=== PATIENT | male | born 1950 | race Caucasian/White ===

== ENCOUNTER 2016-10-15 03:15 | Emergency (ER) | payer OTHER, MEDICARE ==
[~2016-10-15] VITALS: Ht 182.9 cm; Wt 83.9 kg
[~2016-10-15 03:15] MED LIST: ALPRAZOLAM0.5 M3 PO; ALPRAZOLAM1 M2 PO; BENTYL10 M1 PO; CEFTIN250 M1 PO; CLARITIN10 M1 PO; CLONAZEPAM0.5 M2 PO; ESCITALOPRAM OX10 MG PO; FIBER350 GM PO; LEXAPRO20 M1 PO; METOPROLOL SUC100 MG PO; MIRALAX17 G1 PO; OMEPRAZOLE40 M1 PO; OXYCODONE5 M1 PO; PEPCID20 M1 PO; PERCOCET 325 MG1 TA2 PO; PERCOCET 5-3251 EACH PO; STOOL SOFTENER100 M2 PO; TOPROL XL100 M1 PO; WELCHOL 625 MG625 MG PO; ZETIA10 M1 PO; ZOLPIDEM TARTRA10 M1 PO
--- NOTE | 2016-10-15 03:36 | ED CARDIAC/CP/PALPITATIONS ---
History of Present Illness General Chief Complaint: Chest Pain Stated Complaint: CP Source: patient Exam Limitations: no limitations Vital Signs & Intake/Output Vital Signs & Intake/Output Vital Signs Date Time Temp Pulse Resp B/P Pulse O2 O2 Flow FiO2 Ox Delivery Rate 10/15 0703 77 18 131/80 98 Room Air 10/15 0328 98 Room Air 10/15 0325 97.9 79 20 143/78 97 Room Air Allergies Coded Allergies: STATINS (Intermediate, LEG WEAKNESS AFTER 11 DAYS 12/03/15) moxifloxacin (From Avelox) (Intermediate, MUSCLE CRAMPS 01/06/16) Reconcile Medications Alprazolam 1 MG TABLET 1 TAB PO PRN ANXIETY (Reported) Dextrin (Fiber) (Unknown Strength) POWDER (Unknown Dose) PO DAILY CHRONIC CONSTIPATION (Reported) Docusate Sodium (Stool Softener) (Unknown Strength) TABLET 1 TAB PO TID CHRONIC CONSTIPATION (Reported) Escitalopram Oxalate (Lexapro) 20 MG TABLET 1 TAB PO DAILY ANXIETY (Reported) Ezetimibe (Zetia) 10 MG TABLET 1 TAB PO DAILY CHOLESTEROL (Reported) Famotidine (Pepcid) 20 MG TABLET 1 TAB PO BID REFLUX (Reported) Loratadine (Claritin) 10 MG TABLET 1 TAB PO DAILY ALLERGIES (Reported) Metoprolol Succ XL (Toprol XL) 100 MG TAB.ER.24H 1 TAB PO DAILY AFIB ( Reported) Omeprazole 40 MG CAPSULE.DR 1 CAP PO BID REFLUX (Reported) Oxycodone HCl/Acetaminophen (Percocet 5-325 MG Tablet) 1 EACH TABLET 1-2 TAB PO Q4-6P PRN PAIN Polyethylene Glycol 3350 (Miralax) 17 GM POWD.PACK 1 PAC PO DAILY CHRONIC CONSTIPATION (Reported) dissolve in water Zolpidem Tartrate 10 MG TABLET 1 TAB PO QHS SLEEP (Reported) Triage Note: PT TO ED COMPLAINING OF 8/10 SHARP CHEST PAIN THAT WORSENS WITH DEEP INHALATION. PT STATES PAIN STARTED 4 HOURS AGO. PT STATES THAT PAIN DOES NOT SUBSIDE WITH REST, IT IS DIFFICULT FOR HIM TO EVEN LAY DOOWN. EKG DONE IN TRIAGE. Triage Nurses Notes Reviewed? yes HPI: Patient presents for evaluation of left chest and shoulder pain. Patient states it feels like a punch in the chest and arm. His shoulder pain actually began about 4 days ago and he has been taking Advil for this. At sometime after dinner at about 4:00 this afternoon the pain began radiating into the left chest and he became concerned about his heart. He denies any associated shortness of breath or diaphoresis. He is also having a sharp stomach pain. The chest pain worsens with deep inspiration. (EDMUND MILLER,RADHA Jaramillo) Past History Travel History Traveled to [place] past 21 day No Medical History Any Pertinent Medical History? 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 No (EDMUND MILLER,RADHA Jaramillo) Medical History Gastrointestinal: gastritis (KASIA RODRIGUEZ MD) Review of Systems Review of Systems Constitutional: Reports: no symptoms. EENTM: Reports: no symptoms. Respiratory: Reports: no symptoms. Cardiovascular: Reports: see HPI. GI: Reports: no symptoms. Genitourinary: Reports: no symptoms. Musculoskeletal: Reports: no symptoms. Skin: Reports: no symptoms. Neurological/Psychological: Reports: no symptoms. Hematologic/Endocrine: Reports: no symptoms. Immunologic/Allergic: Reports: no symptoms. All Other Systems: Reviewed and Negative (EDMUND MILLER,RADHA Jaramillo) Physical Exam Physical Exam Cardiovascular: SEE BELOW Comments: Gen.: Well-nourished, well-developed, no acute respiratory distress. Mild discomfort secondary to left shoulder pain. Head: Normocephalic, atraumatic. Eyes: Normal inspection bilaterally Ears: Normal inspection bilaterally Nose: Normal inspection Throat/mouth : Moist mucosa Neck: Supple, full range of motion, no goiter Heart: Regular rate and rhythm, no murmurs rubs or gallops Lungs: Clear to auscultation bilaterally with normal air entry Chest: Nontender Back: Normal range of motion Abdomen: Soft, nontender, nondistended, normal bowel sounds Extremities: Normal range of motion grossly, equal radial pulses, no cyanosis clubbing or edema Neurologic: Cranial nerves grossly intact, speech is clear Skin: warm and dry Psychiatric: Calm, cooperative, no apparent delusions or hallucinations Core Measures ACS in differential dx? No Severe Sepsis Present: No Septic Shock Present: No (EDMUND MILLER,RADHA Jaramillo) Progress Differential Diagnosis: AMI, musculoskeletal pain, unstable angina Plan of Care: Orders Procedure Date/time Status TROPONIN LEVEL 10/15 07 Complete EKG 10/15 699 Active Telemetry/Billiard Parlor Manager 10/15 352 Active TROPONIN LEVEL 10/15 352 Complete MAGNESIUM 10/15 352 Complete CBC WITHOUT DIFFERENTIAL 10/15 352 Complete BASIC METABOLIC PANEL 10/15 352 Complete EKG 10/15 317 Active Current Medications Sig/Rachna Start time Last Medication Dose Stop Time Status Admin Nitroglycerin 0.4 MG ONCE ONE 10/15 399 CAN (Nitrostat) 10/15 400 Laboratory Tests 10/15/16 0654: Troponin I < 0.01 10/15/16 0402: Anion Gap 12, Estimated GFR > 60, BUN/Creatinine Ratio 20.0, Glucose 99, Calcium 9.2, Magnesium 1.7, Troponin I < 0.01, CBC w Diff NO MAN DIFF REQ, RBC 5.36, MCV 76.2 L, MCH 25.1 L, RDW 14.2, MPV 8.2, Gran % 78.2 H, Lymphocytes % 9.1 L, Monocytes % 11.9 H, Eosinophils % 0.7, Basophils % 0.1, Absolute Granulocytes 8.1 H, Absolute Lymphocytes 0.9 L, Absolute Monocytes 1.2 H, Absolute Eosinophils 0.1, Absolute Basophils 0, PUBS MCHC 32.9 L Diagnostic Imaging: Discussed w/RAD: Radiology Read. CXR Impression: PATIENT: CIRA HERRERA PRESENT AGE: 66 PATIENT ACCOUNT NO: [id number] : 50 LOCATION: [facility] ORDERING PHYSICIAN: RADHA SHAFFER MD SERVICE DATE: 10/15/16 EXAM TYPE: RAD - XRY-PORTABLE CHEST XRAY EXAMINATION: XR PORTABLE CHEST CLINICAL INFORMATION: Left-sided chest pain. COMPARISON: Chest x-ray 04/26/2013 TECHNIQUE: Portable AP portable view of the chest was obtained. 4:12 AM FINDINGS: No significant abnormality is noted involving the heart, lungs, mediastinum, bony thorax or soft tissues. IMPRESSION : No acute change of chest. DICTATED BY: RAY CAMACHO MD DATE/TIME DICTATED:431 TRANSACTION ADVISORY SERVICES MANAGER:MICHAEL DATE/TIME TRANSCRIBED:10/15/16431 CONFIDENTIAL, DO NOT COPY WITHOUT APPROPRIATE AUTHORIZATION. <Electronically signed in Other Vendor System> SIGNED BY: RAY CAMACHO MD 10/15/16436 Initial ED EKG: NSR, rate (74), nonspecific ST T wave chg Prior EKG: unchanged Rhythm Strip: normal sinus rhythm Comments: 10/15/2016 4:10:01 AM Cira was hesitant to take the sublingual nitroglycerin because he does not feel that this is a heart related pain. Currently he states that when he is at rest he has no chest or shoulder pain. He is now experiencing only a lower substernal and epigastric pain that also resolves when resting. He is agreeable to trying a GI cocktail given his history of acid reflux. 10/15/2016 5:06:54 AM Cira is feeling better. His pain has improved substantially and he feels it primarily when he is taking a deep breath. He states last time he was seen in the emergency department he was given an IV medication that seemed to really help. With review of his prior emergency department visit he was treated with omeprazole and famotidine, I have ordered these. 10/15/2016 5:32:40 AM I went to check on martha condition. He states that the pain seems to change depending on what side he is lying on. Currently he is moving about the stretcher much more comfortably than he did before. Given his own history and the history of coronary artery disease in his father he is agreeable to a repeat EKG and troponin. At this point he is becoming increasingly convinced that his current symptoms are due to a new diabetes medication that he has been taking. 10/15/2016 7:11:36 AM patient signed out to Dr. Rodriguez at shift recovery specialist. (EDMUND MILLER,RADHA Jaramillo) Comments: Diagnostics reviewed patient examined and updated. (MICHAEL MILLER,KASIA) Departure Departure Condition: Stable Departure Forms: Customer Survey General Discharge Information (RADHA SHAFFER MD) Departure Time of Disposition: 802 Disposition: HOME OR SELF CARE Clinical Impression Primary Impression: Chest pain syndrome Secondary Impressions: Gastritis Qualifiers: Gastritis type: unspecified gastritis Chronicity: acute Gastritis bleeding: without bleeding Qualified Code: K29.00 - Acute gastritis without bleeding Medication side effect Referrals: BLANKA MILLER,ROBERT Vega (PCP/Family) sherri JONAS MD,IRINA Story concerning Zetia side effects. Prescriptions: Current Visit Scripts Baclofen 1 TAB PO TIDPRN PRN muscle spasm/strain #30 TAB Hydrocodone/Acetaminophen (Vicodin 5-300 MG Tablet) 1 TAB PO Q6P PRN severe pain #15 TAB (MICHAEL MILLER,KASIA) Critical Care Note Critical Care Note Critical Care Time: 30-74 min (EDMUND MILLER,RADHA Jaramillo)
[2016-10-15 04:23] LABS: ABSOLUTE BASOPHIL COUNT 0 /CUMM (0.0-0.2); ABSOLUTE EOSINOPHIL COUNT 0.1 /CUMM (0.0-0.7); ABSOLUTE GRANULOCYTE CT 8.1 /CUMM (1.4-6.5); ABSOLUTE LYMPH COUNT 0.9 /CUMM (1.2-3.4); ABSOLUTE MONOCYTE COUNT 1.2 /CUMM (0.10-0.60); BASOPHIL % 0.1 % (0.0-2.0); EOSINOPHIL % 0.7 % (0-5); GRANULOCYTE % 78.2 % (42.2-75.2); HEMATOCRIT 40.8 % (42-52); MEAN CORPUSCULAR HGB 25.1 PG (27.0-31.0); MEAN CORPUSCULAR HGB CONC 32.9 G/DL (33.0-37.0); MEAN CORPUSCULAR VOLUME 76.2 FL (80.0-94.0); MEAN PLATELET VOLUME 8.2 FL (7.4-10.4); PLATELET COUNT 217 /CUMM (130-400); RBC DISTRIBUTION WIDTH 14.2 % (11.5-14.5); RED BLOOD CELL CT 5.36 /CUMM (4.70-6.10); WHITE BLOOD CELL COUNT 10.3 /CUMM (4.8-10.8)
--- NOTE | 2016-10-15 04:37 | RADIOLOGY REPORT ---
EXAMINATION: XR PORTABLE CHEST CLINICAL INFORMATION: Left-sided chest pain. COMPARISON: Chest x-ray 04/26/2013 TECHNIQUE: Portable AP portable view of the chest was obtained. 4:12 AM FINDINGS: No significant abnormality is noted involving the heart, lungs, mediastinum, bony thorax or soft tissues. IMPRESSION: No acute change of chest.
[2016-10-15 07:03] VITALS: BP 131/80
[2016-10-15] MEDS ORDERED: VICODIN 5-3001 EACH PO (08:12)
[2016-10-15] MEDS ORDERED: BACLOFEN10 M1 PO (08:12)
== END 2016-10-15 08:10 ==
LOC: ERH 03:15
PROVIDERS: Emergency Medicine
DX: R07.89 Other chest pain (principal); K29.70 Gastritis, unspecified, without bleeding; T50.905A Adverse effect of unspecified drugs, medicaments and biological substances, initial encounter
CPT/HCPCS: 93005; 93010; 96374

== ENCOUNTER 2018-03-08 11:58 | Observation (INO) | payer OTHER, MEDICARE ==
[~2018-03-08] VITALS: Ht 175.3 cm; Wt 68.0 kg
[~2018-03-08 11:58] MED LIST changes: +BACLOFEN10 M1 PO; +VICODIN 5-3001 EACH PO
--- NOTE | 2018-03-08 13:18 | ED GENERAL ADULT ---
See Addendum History of Present Illness General Chief Complaint: General Adult Stated Complaint: HALUCINATIONS, NERVOUS BREAKDOWN S/P DX [place] Source: patient, family, old records Exam Limitations: confusion, poor historian Vital Signs & Intake/Output Vital Signs & Intake/Output Vital Signs Date Time Temp Pulse Resp B/P B/P Pulse O2 O2 Flow FiO2 Mean Ox Delivery Rate 03/08 2220 98.1 88 19 141/81 96 Room Air 03/08 1759 97.9 82 18 144/79 97 Room Air 03/08 1347 97.6 72 18 132/82 99 Room Air 03/08 1207 97.6 78 17 128/83 98 Room Air Allergies Coded Allergies: STATINS (Intermediate, LEG WEAKNESS AFTER 11 DAYS 12/03/15) moxifloxacin (From Avelox) (Intermediate, MUSCLE CRAMPS 01/06/16) Reconcile Medications Escitalopram Oxalate (Lexapro) 20 MG TABLET 1 TAB PO DAILY ANXIETY (Reported) Ezetimibe (Zetia) 10 MG TABLET 1 TAB PO DAILY CHOLESTEROL (Reported) LORazepam (Ativan) 1 MG TAB 1 TAB PO QPM SLEEP (Reported) Metoprolol Succ XL (Toprol XL) 100 MG TAB.ER.24H 1 TAB PO DAILY AFIB ( Reported) Pravastatin Sodium (Pravachol) 20 MG TABLET 1 TAB PO DAILY CHOLESTEROL ( Reported) Zolpidem Tartrate 10 MG TABLET 1 TAB PO QHS SLEEP (Reported) Triage Note: PT BROUGHT TO ED BY WITH CONCERNS OF ALTERED MENTAL STATUS, HALLUCINATIONS X 3 WEEKS. ALSO REPORTS A NEW EPISODE OF INCONTINENCE. STATES, PT IS SEEING THINGS THAT ARE NOT THERE. DENIES SI/HI. Triage Nurses Notes Reviewed? yes HPI: This is a 67-year-old male with history of hyperlipidemia, atrial fibrillation, presented to the emergency department with several weeks of ongoing behavioral disturbance. Patient was brought in by his after outpatient evaluation. He is [facility] in a [facility]. According to the , the [facility] facility requested ED evaluation prior to their accepting the patient. According to the , he has a ready bed for tomorrow. Patient has been acting intermittently agitated, particularly at night; his states that he has been making bizarre statements such as worrying that people are breaking into the house, describing what can only be visual hallucinations. He has also been incontinent of urine intermittently. He underwent an outpatient MRI which according to the was normal. He has had no fever/chills. He has had good appetite per the . He has had no chest pain or shortness of breath. Review of systems is limited by the patient's confusion. (Adams Banks MD) Past History Travel History Traveled to [place] past 21 day No Medical History Any Pertinent Medical History? 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 No (Adams Banks MD) Review of Systems Review of Systems Constitutional: Reports: no symptoms. EENTM: Reports: no symptoms. Respiratory: Reports: no symptoms. Cardiovascular: Reports: no symptoms. GI: Reports: no symptoms. Genitourinary: Reports: no symptoms. Musculoskeletal: Reports: no symptoms. Skin: Reports: no symptoms. Neurological/Psychological: Reports: anxiety, confusion, emotional problems. Hematologic/Endocrine: Reports: no symptoms. Immunologic/Allergic: Reports: no symptoms. (Adams Banks MD) Physical Exam Physical Exam General Appearance: well developed/nourished, no apparent distress, alert, awake , anxious Head: atraumatic, normal appearance Eyes: Bilateral: normal appearance. 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 Patient confused to recent past medical history or very poor historian. Oriented to person, place, time. Core Measures ACS in differential dx? No CVA/TIA Diagnosis: No Sepsis Present: No Sepsis Focused Exam Completed? No (Adams Banks MD) Progress Differential Diagnoses I considered the following diagnoses in my evaluation of the patient: Metabolic derangement, occult infection/urinary tract infection, clinically suspect that this is progression of organic neurologic disorder. Could be psychiatric related. Patient will require outpatient neurologic workup. Low suspicion for acute cerebrovascular accident. Plan of Care: Orders Procedure Date/time Status Heart Healthy Diet 03/09 B Active BASIC ELECTROLYTES PLUS BUN&CR 03/09 06 Active Pathway - chart 03/08 2357 Active House Staff 03/08 2357 Active Patient Data 03/08 2314 Active Patient Safety Monitor 03/08 2314 Active EKG 03/[address] in observation 03/08 2256 Active Vital Signs 03/08 225 Active Code Status 03/08 225 Active Add-on Test (ER Only) 03/08 205 Active THYROID STIMULATING HORMONE 03/08 1610 Complete THYROXINE 03/08 1610 Complete ED CRISIS PSYCH CONSULT 03/08 1523 Active COMPREHENSIVE METABOLIC PANEL 03/08 1348 Complete CBC WITHOUT DIFFERENTIAL 03/08 1348 Complete EKG 03/08 1348 Active Intake & Output 03/08 1339 Active URINE DRUG SCREEN FOR ER ONLY 03/08 1207 Complete URINALYSIS 03/08 1207 Complete VTE Mechanical Prophylaxis 03/08 UNK Active Vital Signs 03/08 UNK Active Intake & Output 03/08 UNK Active Activity/Ambulation 03/08 UNK Active Current Medications Sig/Rachna Start time Last Medication Dose Stop Time Status Admin Escitalopram Oxalate 20 MG DAILY 03/09 900 UNVr (Lexapro) Metoprolol Succinate 100 MG DAILY 03/09 900 UNVr (Toprol Xl) Pravastatin Sodium 20 MG DAILY 03/09 900 UNVr (Pravachol) Heparin Sodium 5,000 UNIT Q8 03/09 06 UNVr (Porcine) Potassium Chloride 40 MEQ ONCE ONE 03/09 0015 UNVr (Klor) 03/09 0016 Laboratory Tests 03/08/18 1610: Anion Gap 11, Estimated GFR > 60, BUN/Creatinine Ratio 18.3, Glucose 89, Calcium 8.3 L, Total Bilirubin 1.1, AST 30, ALT 37, Alkaline Phosphatase 39, Total Protein 6.2 L, Albumin 3.7, Globulin 2.5, Albumin/Globulin Ratio 1.5, TSH 1.390 , Thyroxine (T4) 8.7 03/08/18 1425: CBC w Diff NO MAN DIFF REQ, RBC 5.07, MCV 75.5 L, MCH 25.3 L, MCHC 33.5, RDW 14.6 H, MPV 9.1, Gran % 67.5, Lymphocytes % 20.4 L, Monocytes % 11.3 H, Eosinophils % 0.6, Basophils % 0.2, Absolute Granulocytes 4.3, Absolute Lymphocytes 1.3, Absolute Monocytes 0.7 H, Absolute Eosinophils 0, Absolute Basophils 0 03/08/18 1223: Urine Opiates Screen < 100, Methadone Screen < 40, Barbiturate Screen < 60, Ur Phencyclidine Scrn < 6.00, Amphetamines Screen < 100, U Benzodiazepines Scrn < 85, Urine Cocaine Screen < 50, Urine Cannabis Screen < 5.00, Urine Color YEL, Urine Clarity CLEAR, Urine pH 6.0, Ur Specific [place] >= 1.030, Urine Protein NEG, Urine Ketones TRACE H, Urine Nitrite NEG, Urine Bilirubin NEG@ICTO, Urine Urobilinogen 2.0 H, Ur Leukocyte Esterase NEG, Ur Microscopic EXAM NOT REQUIRED , Urine Hemoglobin NEG, Urine Glucose NEG In this patient with a nonfocal neurologic exam and recurrent episodes of agitation at night with some forgetfulness and confusion with report of visual hallucination, patient will be evaluated by the crisis intervention unit. Low suspicion for acute metabolic derangement or infectious process or acute vascular pathology. Patient calm and cooperative while in my care in the emergency department. Following valuation by the crisis unit, he decided the patient would benefit from admission to observation status under the medicine service. While the emergency department, he has frequent urination but no dysuria. He is able ambulate without difficulty. Initial ED EKG: normal axis, normal intervals, no ST T wave changes (Adams Banks MD) Departure Departure Time of Disposition: 1705 Disposition: STILL A PATIENT Condition: Stable Clinical Impression Primary Impression: Visual hallucinations Secondary Impressions: Agitation Referrals: Lauren MILLER,Scar Vega (PCP/Family) Departure Forms: Customer Survey General Discharge Information Observation Note Spoke With: Daysi Tamez MD Physician Advisor Notified: GRADYLISET BENAVIDEZ MD Place Patient In: Non-ED OBS Care Area Rationale for Observation: My rational for observation is as follows patient here for neurologic consultation, psychiatric consultation, frequent reassessment, possible repeat laboratory studies, pharmacologic control of agitation.. (Adams Banks MD) Resident Co-Sign Statement Statement: ED Attending supervision documentation- [] I saw and evaluated the patient. I have also reviewed all the pertinent lab results and diagnostic results. I agree with the findings and the plan of care as documented in the Resident's documentation. [X] I have reviewed the ED Record and agree with the Resident's documentation. [] Additions or exceptions (if any) to the Resident's note and plan are summarized below: [] (Liset Grady MD) Critical Care Note Critical Care Note Critical Care Time: non-applicable (Adams Banks MD) ED Attending Observation Initial Observation Note: I have seen and personally examined CIRA HERRERA on 03/08/18 at 2258. I agree with the current emergency department documentation. The disposition (admission or discharge) is uncertain at this time, he needs a period of observation for the following reason(s): The ED Nurse caring for this patient has been personally informed as to what the patient is being observed for. (Adams Banks MD)
[2018-03-08 14:32] LABS: ABSOLUTE BASOPHIL COUNT 0 /CUMM (0.0-0.2); ABSOLUTE EOSINOPHIL COUNT 0 /CUMM (0.0-0.7); ABSOLUTE GRANULOCYTE CT 4.3 /CUMM (1.4-6.5); ABSOLUTE LYMPH COUNT 1.3 /CUMM (1.2-3.4); ABSOLUTE MONOCYTE COUNT 0.7 /CUMM (0.10-0.60); BASOPHIL % 0.2 % (0.0-2.0); EOSINOPHIL % 0.6 % (0-5); GRANULOCYTE % 67.5 % (42.2-75.2); HEMATOCRIT 38.3 % (42-52); MEAN CORPUSCULAR HGB 25.3 PG (27.0-31.0); MEAN CORPUSCULAR HGB CONC 33.5 G/DL (33.0-37.0); MEAN CORPUSCULAR VOLUME 75.5 FL (80.0-94.0); MEAN PLATELET VOLUME 9.1 FL (7.4-10.4); PLATELET COUNT 318 /CUMM (130-400); RBC DISTRIBUTION WIDTH 14.6 % (11.5-14.5); RED BLOOD CELL CT 5.07 /CUMM (4.70-6.10); WHITE BLOOD CELL COUNT 6.3 /CUMM (4.8-10.8)
[2018-03-08] MEDS ORDERED: PRAVACHOL20 M2 PO (15:00)
[2018-03-08] MEDS ORDERED: ATIVAN1 M1 PO (15:01)
--- NOTE | 2018-03-08 15:09 | CT SCAN REPORT ---
EXAMINATION: CT HEAD WITHOUT CONTRAST CLINICAL INFORMATION: Altered mental status. COMPARISON: MRI of the brain from 03/02/2018 TECHNIQUE: Contiguous axial imaging was performed from the skull base to vertex without intravenous administration of contrast. DLP: 319 mGy-cm FINDINGS: There is no evidence of acute intracranial hemorrhage or territorial infarction. No abnormal mass effect or midline shift is seen. Aviles to white matter differentiation is well preserved. No extra-axial fluid collections are identified. The ventricles are normal in size. There is no abnormal attenuation within the brain parenchyma. The osseous structures and soft tissues are normal. The mastoid air cells, middle ear cavities, and visualized portions of the paranasal sinuses are well aerated. IMPRESSION: No acute intracranial pathology.
--- NOTE | 2018-03-08 17:12 | RADIOLOGY REPORT ---
EXAMINATION: CHEST 2 VIEWS CLINICAL INFORMATION: Altered mental status. COMPARISON: 10/15/2016. TECHNIQUE: PA and lateral views of the chest were obtained. FINDINGS: The cardiac silhouette is not enlarged. The mediastinal and hilar contours are unremarkable. There are neither pleural effusions nor pneumothoraces. There are no consolidations. The osseous structures are stable. IMPRESSION: No evidence for acute disease.
--- NOTE | 2018-03-08 21:05 | ED PSYCH CRISIS CONSULTATION ---
See Addendum Crisis Consult Basic Assessment Date of Consult: 03/08/18 Responsible Person/Accompanied By: Brought in by family Insurance Authorization: Insurance #1: Insurance name: MEDICARE A Phone number: Policy number: [id number] Group number: Authorization number: ED Provider: Patient's ED Provider: Adams Banks MD Primary Care Physician: Patient's PCP: Scar Aguilar MD PCP's Current Psychiatrist: None Chief Complaint: General Adult Patient's Quote: "Multiple Ailments" Present Illness: The patient is a 67 year old, male presenting to the ED with Altered mental status and new onset of hallucinations over the last 4 weeks. The patient presents as alert and oriented for the majority of the evaluation, however had 2-3 periods during the evaluation where he was disoriented and not answering questions appropriately. He was aware of the date, where he was and who he was, however believed that he was 86 or 89 years old. He is aware that he is having memory issues and states that he never had that problem before. He states that his family has been telling him things that he has been doing and saying and it is hard to believe. He denies any suicidal or homicidal ideations. He admits to some depression and anxiety related to the situation, rating his depression a 6 out of 10 and anxiety a 5 out of 10, 10 being the most severe. He states that all of this started when he "got a strange cold or flu," and then he started to feel not right. He states that he has not been able to drive, he has been having difficultly sleeping and had lost "50lbs." he is not sure what would be helpful and defers to his family. SW met with his , Soni Silva ([phone]) and his niece David Newman ([phone]), for collateral information. The family states that over the last 4 weeks "his whole personality changed." They states that he has been hallucinating and seeing people that are not there. He has been hiding his valuables around the house, locking his out of the bedroom and believed that pillows were the strangers suitcases. The family states that he was watching a television program and became very paranoid stating that the program was about their family and that private information was being shared with everyone. The family states that he has lost weight and has been having difficulty urinating, noting that he urinated on his bed last night. They state he has been confused and been disoriented in their own home, not knowing where the bathroom is. They state that he was driving 4 weeks ago when they went to [place] and now they have taken his keys, as he is disoriented. They find him to have poor judgement and not able to care for himself. They state that he has no significant mental health history and that he has only been treated by his PCP and more recently the [facility], with some minimal antidepressants. They wanted to note that his mother did commit suicide by running her car in the garage and that she left a tape saying she was trying to kill him also, as he was sleeping at the time. They believe that he needs a further medical workup. Patient's Address: [address] [place] [address] [place] [address] Other Phone Number: Who Do You Live With? Spouse Family/Informants Interviewed: - Soni Myers [phone] Niece- David Newman- [phone] Allergies - Coded Allergies: STATINS (Intermediate, LEG WEAKNESS AFTER 11 DAYS 12/03/15) moxifloxacin (From Avelox) (Intermediate, MUSCLE CRAMPS 01/06/16) Current Medications - Scheduled Medications Escitalopram Oxalate (Lexapro) 20 MG TABLET 1 TAB PO DAILY ANXIETY (Reported) Entered as Reported by Taylor Hays on 05/05/16 1651 Ezetimibe (Zetia) 10 MG TABLET 1 TAB PO DAILY CHOLESTEROL (Reported) Entered as Reported by Taylor Hays on 05/05/16 1653 LORazepam (Ativan) 1 MG TAB 1 TAB PO QPM SLEEP (Reported) Entered as Reported by Giorgio Padilla on 03/08/18 1501 Metoprolol Succ XL (Toprol XL) 100 MG TAB.ER.24H 1 TAB PO DAILY AFIB ( Reported) Entered as Reported by Taylor Hays on 05/05/16 1652 Pravastatin Sodium (Pravachol) 20 MG TABLET 1 TAB PO DAILY CHOLESTEROL ( Reported) Entered as Reported by Giorgio Padilla on 03/08/18 1500 Zolpidem Tartrate 10 MG TABLET 1 TAB PO QHS SLEEP (Reported) Entered as Reported by Taylor Hays on 05/05/16 1653 Laboratory Results: Laboratory Tests 03/08/18 1610: Anion Gap 11, Estimated GFR > 60, BUN/Creatinine Ratio 18.3, Glucose 89, Calcium 8.3 L, Total Bilirubin 1.1, AST 30, ALT 37, Alkaline Phosphatase 39, Total Protein 6.2 L, Albumin 3.7, Globulin 2.5, Albumin/Globulin Ratio 1.5 03/08/18 1425: CBC w Diff NO MAN DIFF REQ, RBC 5.07, MCV 75.5 L, MCH 25.3 L, MCHC 33.5, RDW 14.6 H, MPV 9.1, Gran % 67.5, Lymphocytes % 20.4 L, Monocytes % 11.3 H, Eosinophils % 0.6, Basophils % 0.2, Absolute Granulocytes 4.3, Absolute Lymphocytes 1.3, Absolute Monocytes 0.7 H, Absolute Eosinophils 0, Absolute Basophils 0 03/08/18 1223: Urine Opiates Screen < 100, Methadone Screen < 40, Barbiturate Screen < 60, Ur Phencyclidine Scrn < 6.00, Amphetamines Screen < 100, U Benzodiazepines Scrn < 85, Urine Cocaine Screen < 50, Urine Cannabis Screen < 5.00, Urine Color YEL, Urine Clarity CLEAR, Urine pH 6.0, Ur Specific Aston >= 1.030, Urine Protein NEG, Urine Ketones TRACE H, Urine Nitrite NEG, Urine Bilirubin NEG@ICTO, Urine Urobilinogen 2.0 H, Ur Leukocyte Esterase NEG, Ur Microscopic EXAM NOT REQUIRED , Urine Hemoglobin NEG, Urine Glucose NEG Past History Past Medical History Neurological: NONE EENT: NONE Cardiovascular: AFIB (PAROXYSMAL), hyperlipidemia, PVC Respiratory: NONE Gastrointestinal: gastritis Hepatic: NONE Renal: NONE Musculoskeletal: DISC PROBLEMS Psychiatric: NONE Endocrine: NONE Blood Disorders: NONE Cancer(s): NONE 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 Physical Limitations (Interventions): The patient has been staying in bed more and has been incontinent. Psychiatric Treatment History Psych Treatment Psychiatric Treatment No Inpatient Treatment No Outpatient Treatment Yes Location of Treatment Dr. Carbajal- [facility] Reason for Treatment Depression- per Dates of Treatment Recently started with the [facility] Response to Treatment N/A Diagnosis by History: N/A Substance Use/Abuse History Drug Use/Abuse Substances Used/Abused No First Use N/A Last Used N/A How much used/taken N/A How often N/A For how long N/A Route of use N/A Substance Abuse Treatment Substance Abuse Treatment Past Substance Abuse [place] No Inpatient Treatment No Outpatient Treatment No Location of Treatment N/A Reason for Treatment N/A Dates of Treatment N/A Response to Treatment N/A Comments: The patient states that he used to have alcohol at times, however he has not had any in 1 month, noting that the doctor stated when he started to show altered mental status that he should not have any. Current Mental Status Mental Status Orientation: He presented alert and oriented and was able to state where he was, who he was and the current situation. He did know he was born in 1950, however states that he was 86 or 89 years old. He did become completely disortiented during two periods of the evaluation and then quickly was oriented again. Affect: Anxious (Irritable) Speech: WNL Neuro-vegetative: Appetite Decreased (With significant weight loss), Sleep Disturbance Appearance Appearance- Dress/Hygiene: The patient was lying in bed, in his own attire with the blankets pulled up to his head. He had minimal eye contact during the evaluation and presented as irritable. Behaviors Thought Process: WNL, There was 2 periods during the evaluation where he became disoriented and began to answer questions in an inappropriate unlogical manner. Thought Content: WNL, Per his and niece he has been paranoid and having hallucinations. He has been seeing people around their house. Per his , he has been having ideas of reference and believed that the police show on televsion was about him and talking about him, giving out personal information. Memory: Impaired (Sudden onset of memory issues) Insight: Fair SI/HI Risk Assessment Past Suicidal Ideation/Attempts No Current Suicidal Ideation/Att No Past Homicidal Ideation/Att: No Current Homicidal Ideation/Attempts No Degree of Intent: None Danger To: N/A Gravely Disabled: Lack of Insight, Poor Impulse Control, Poor Judgment Risk Factors: age (under 24/over 65), high anxiety/distress, male Lethality Ratin PTSD Checklist PTSD Done? patient declined (Denies trauma or abuse hx.) ED Management Sitter: Yes Restraints: No DSM5/PS Stressors/Medical Prob Diagnosis' (DSM 5, Stressors, Medical): F29 Unspecified Schizophrenia Spectum and other psychotic disorder, R/O Neurocognitive Disorder Medical: AFib Stressors: New onset of memory issues and altered mental status Current GAF: 28 Comments: N/A Departure Disposition Psych Medical Clearance Date: 03/08/18 Medically Cleared at: 1830 Time Started: 1844 Time Ended: 1944 Psychiatrist Consulted: Dr. Agrawal Date Disposition Established: 03/08/18 Time Disposition Established: 2014 Plan for Disposition - Modality: Medical Admission for Aletered Mental Status Facility: [facility] Contact: N/A Telephone: N/A Rationale for Disposition: The patient presents with new onset of hallucinations and aletered mental status. He has had significant weight losss, difficulty urinating, memory issues and responses that are inappropriate and illogical. Case discussed with Dr. Agrawal and she recommends that he be admitted to medicine for a further medical workup. SW will talk with Case Managment and Doctor Banks about an admission. Additional Instructions: N/A Referrals Lauren MILLER,Scar Vega (PCP/Family)
--- NOTE | 2018-03-08 23:16 | History & Physical ---
SherifjhonatanLorigarrett 03/08/18 1395: General Information and HPI MD Statement: I have seen and personally examined CIRA HERRERA and documented this H&P. The patient is a 67 year old M who presented with a patient stated chief complaint of Source of Information: patient History of Present Illness: Mr Herrera is a 67 year old man w/ a PMHx of proximal atrial fibrillation, hyperlipidemia was brought to the ER by his family with a chief concern of hallucinations that started a 4 weeks ago. He was recently evaluated by an outpatient psychiatric facility and was planned to be placed in a senior living facility which required an ED/medical evaluation. Some collateral information was obtained from patients . As per the , the patient has been intermittently agitated particularly at night which started 4 wks ago after they went for a vacation in the . He has not been sleeping at night at all, and seems to have symptoms only at night. Also noted to have had visual and auditory hallucinations, and paranoia; for example worrying about people breaking into the house, seeing people. Reported to have increased urinary frequecny, and he happened to urinate on the bed voluntarily. No fever, chest pain, shortness of breath, abdominal pain, nausea vomiting. Reported to have had weight loss of approximately 50 pounds in 4 wks, but no change in appetite. Reported to have tremors, which are present throught out the day. Recent MRI that was done was within normal limits. Did not have any suicidal or homicidal ideations. Family h/o mental health disorders. Recently tx by [facility] w/ anti- depressants. Reported to have had a mother who killed herself when she was 26 yrs. No recent changes in meds. Worked in an [employer], and no exposure to any chemicals; or has any use of ivda/stimulants, very light alcohol use, and remote h/o of smoking. No recent change in family structure, or stressors noted. Allergies/Medications Allergies: Coded Allergies: STATINS (Intermediate, LEG WEAKNESS AFTER 11 DAYS 12/03/15) moxifloxacin (From Avelox) (Intermediate, MUSCLE CRAMPS 01/06/16) Home Med list Escitalopram Oxalate (Lexapro) 10 MG TABLET 20 MG PO DAILY depression Metoprolol Succ XL (Toprol XL) 100 MG TAB.ER.24H 1 TAB PO DAILY AFIB ( Reported) Pravastatin Sodium (Pravachol) 20 MG TABLET 1 TAB PO DAILY CHOLESTEROL ( Reported) Zolpidem Tartrate 10 MG TABLET 1 TAB PO QHS SLEEP (Reported) Observation Initial Note - I have personally examined CIRA HERRERA on 03/09/18 at 0117. 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 FATHER (CAD). Psychosocial History Services at Home: None Functional Ability ADLs Independent: dressing, eating, toileting, bathing. Ambulation: independent IADLs Independent: shopping, housework, medication admin. Needs Assist: transportation. Unknown: finances, food prep, telephone. 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 EENTM: Denies: blurred vision, visual changes. Cardiovascular: Denies: chest pain, edema, palpitations, syncope. Respiratory: Denies: cough, hemoptysis, orthopnea, short of breath. GI: Denies: abdominal pain, diarrhea. Genitourinary: Reports: frequency. Denies: dysuria. Musculoskeletal: Denies: back pain. Skin: Denies: change in skin color. Neurological/Psychological: Reports: confusion. Denies: anxiety, headache, numbness, paresthesia, pre- existing deficit, petit mal seizures, tingling, tremors, tonic-clonic seizures, unable to move lower ext, unable to move upper ext, weakness. Hematologic/Endocrine: Denies: bruising. Exam & Diagnostic Data Last 24 Hrs of Vital Signs/I&O Vital Signs Date Time Temp Pulse Resp B/P B/P Pulse O2 O2 Flow FiO2 Mean Ox Delivery Rate 03/080 98.1 88 19 141/81 96 Room Air 03/08 1759 97.9 82 18 144/79 97 Room Air 03/08 1347 97.6 72 18 132/82 99 Room Air 03/08 1207 97.6 78 17 128/83 98 Room Air Intake & Output 03/09 0800 03/09 0000 03/08 1600 Intake Total Output Total Balance Patient 150 lb Weight Weight Estimated Measurement Method Physical Exam General Appearance Alert, Oriented X3, Cooperative, No Acute Distress Skin No Rashes, No Breakdown Skin Temp/Moisture Exam: Warm/Dry Sepsis Skin Exam (color): Normal for Ethnicity HEENT Atraumatic, PERRLA, EOMI Neck Supple, No JVD, No thryomegaly Lymphatic Cervical nl Cardiovascular Regular Rate, Normal S1, Normal S2, No Murmurs Lungs Normal Air Movement Abdomen Normal Bowel Sounds, Soft, No Tenderness, No Hepatospenomegaly Neurological Normal Speech, Strength at 5/5 X4 Ext, Normal Tone, Sensation Intact, Cranial Nerves 3-12 NL, Reflexes 2+ Extremities No Clubbing, No Cyanosis, No Edema, Normal Pulses, No Tenderness/ Swelling Vascular Pulses Symmetrical Sepsis Peripheral Pulse Location: Dorsalis Pedis Sepsis Peripheral Pulse Exam: Normal Last 24 Hrs of Labs/Diego: Laboratory Tests 03/08/18 1610: Anion Gap 11, Estimated GFR > 60, BUN/Creatinine Ratio 18.3, Glucose 89, Calcium 8.3 L, Total Bilirubin 1.1, AST 30, ALT 37, Alkaline Phosphatase 39, Total Protein 6.2 L, Albumin 3.7, Globulin 2.5, Albumin/Globulin Ratio 1.5, TSH 1.390 , Thyroxine (T4) 8.7 03/08/18 1425: CBC w Diff NO MAN DIFF REQ, RBC 5.07, MCV 75.5 L, MCH 25.3 L, MCHC 33.5, RDW 14.6 H, MPV 9.1, Gran % 67.5, Lymphocytes % 20.4 L, Monocytes % 11.3 H, Eosinophils % 0.6, Basophils % 0.2, Absolute Granulocytes 4.3, Absolute Lymphocytes 1.3, Absolute Monocytes 0.7 H, Absolute Eosinophils 0, Absolute Basophils 0 03/08/18 1223: Urine Opiates Screen < 100, Methadone Screen < 40, Barbiturate Screen < 60, Ur Phencyclidine Scrn < 6.00, Amphetamines Screen < 100, U Benzodiazepines Scrn < 85, Urine Cocaine Screen < 50, Urine Cannabis Screen < 5.00, Urine Color YEL, Urine Clarity CLEAR, Urine pH 6.0, Ur Specific [place]ott >= 1.030, Urine Protein NEG, Urine Ketones TRACE H, Urine Nitrite NEG, Urine Bilirubin NEG@ICTO, Urine Urobilinogen 2.0 H, Ur Leukocyte Esterase NEG, Ur Microscopic EXAM NOT REQUIRED , Urine Hemoglobin NEG, Urine Glucose NEG Diagnostic Data EKG Results NSR. Assessment/Plan Assessment: Mr Herrera is a 67 year old man w/ a PMHx of proximal atrial fibrillation(not on any AC), hyperlipidemia was brought to the ER by his family with a chief concern of hallucinations that started a 4 weeks ago, likely from a neurodegenerative disease. At the time of admission-temperature 97.6, respiration 18, blood pressure 132/82 , pulse rate 72, pulse ox 99% on room air. Pertinent lab findings: WBC 6.3, hemoglobin 12.8, hematocrit 38.3, MCV 75, platelet count 318. Sodium 142, potassium 3.3, chloride 106, bicarbonate 25 BUN 11, creatinine 0.6. Calcium 8.3, TSH 1.39 U tox negative for any opiates, benzodiazepines, amphetamines, cocaine or cannabis. Urinalysis negative for any infection. EKG NSR. CT head- There is no evidence of acute intracranial hemorrhage or territorial infarction. Chest x-ray- There are neither pleural effusions nor pneumothoraces. There are no consolidations. The osseous structures are stable. 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 Although this is a diagnosis of exclusion, this seems more likely; reversible causes need to be ruled out. No evidence of acute psychosis, olivia or delirium. CT scan findings not s/o any masses or lesion, and clearly no focal neurological deficits s/o cva or stroke or cerebellar dysfunction. No s/o infection or liver dysfunction. No neck rigidity. No e/o drug use w/ neg drug screen. No hyperthermia or myoclonus or e/o increased serotonergic activity. Other diff considered are schizophrenia, depression, thyroid disorder, wilsons, partial seizures. Problem list: 1. AMS secondary to dementia, r/o Parkinsons, Lewy body 2. h/o Afib 3. Anemia, likely nutritional; microcytic 4. h/o hyperlipidemia Plan: 1. Observe on general medicine service 2. Continue home medicaitons 3. Neurology consult. 4. Fall, seizure precautions 5. Sitter, if needed. 6. Check RPR, vitmain B12, folate, thiamine 7. Continue lexapro, and start trazodone 100mg bedtime. 8. Please check with the PCP about his statin medication; as he seems to be having an adverse reaction to statin. 9. Psychiatry has evaluated him in the ER, please follow up in the am for further recs. 10. No further radiological work up. Checklist: 1. Code- Full code 2. Diet- heart healthy diet 3. Please confirm the medication statin from his PCP. 4. AC- heparin sc+ ALPS. As Ranked By This Provider Problem List: 1. Agitation 2. Visual hallucinations Core Measures/Misc (05/10) Acute Coronary Syndrome ACS Diagnosis: No Congestive Heart Failure Congestive Heart Failure Diagnosis No Cerebrovascular Accident CVA/TIA Diagnosis: No VTE (View Protocol) VTE Risk Factors Acute Medical Illness No Mechanical VTE Prophylaxis d/t N/A MechProphylax Ordered No VTE Pharm Prophylaxis d/t NA PharmProphylax ordered Sepsis (View protocol) Sepsis Present: No If YES complete Sepsis Event Note If YES complete Sepsis Event Note Daysi Tamez MD 03/09/18 0019: Core Measures/Misc (05/10) Sepsis (View protocol) If YES complete Sepsis Event Note If YES complete Sepsis Event Note Attending MD Review Statement Attending Statement Attending MD Statement: examined this patient, discuss w/resident/PA/PASTRY MIXER, agreed w/resident/PA/PASTRY MIXER, reviewed EMR data (avail), discussed with nursing, discussed with case mgmt, amended to note Attending Assessment/Plan: 67-year-old male with history of paroxysmal atrial fibrillation, dyslipidemia. Brought in for evaluation by family due to reports of hallucinations and paranoid thinking over the past 4 weeks. Seen by his primary care provider. Outpatient workup by his PCP was negative according to family. MRI of the brain was ordered by the PCP which showed no acute pathologies. He has actually made arrangements for patient to be admitted to the inpatient geriatric psychiatric facility however he was brought to the emergency room for evaluation to rule out other medical etiologies to his mental status changes. Workup in the emergency room has been unrevealing. The acute onset of his symptoms point to delirium secondary to a toxic/metabolic etiology. Workup in the emergency room has been unrevealing with no obvious metabolic etiology. Other differentials include neurodegenerative disease such as Alzheimer's, reported dementia or Parkinson's disease. Family also reports poor sleep. Lack of adequate sleep may also lead to delirium. Problems: 1. Altered mental status 2. History of paroxysmal atrial fibrillation 3. Chronic microcytic anemia Plan: Place on observation level of care. Please ensure adequate sleeping environment. Provide trazodone for bedtime tonight. Reevaluate in a.m. Avoid all delirium triggers. Follow-up laboratory workup for reversible causes of delirium. Consider neurology consultation to evaluate for neurodegenerative disease. Confirm medication allergy with family and PCP. He has statin therapy listed as an allergy. Meanwhile he is on a statin at home. an allergy. Meanwhile he is on a statin at home.
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
[2018-03-09 09:38] VITALS: BP 164/84
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
--- NOTE | 2018-03-09 13:34 | Cons- Neurology ---
General Information and HPI Consulting Request Date of Consult: 03/09/18 Requested By: Sina Smith MD History of Present Illness: 67-year-old male whose history is obtained both from the patient, his and [id number]. He is currently brought to the emergency room due to a 3 to four -week history of visual hallucinosis and paranoia. More remotely, over months and perhaps as long as one year, the patient has manifest signs of depression with reported 50 pound weight loss and sleep disturbance. His family also states that he has perhaps slowed down over the past year. He seems to be a bit hunched over and is less active than he once was. He may occasionally display some tremulousness of the hands however this typically does not occur at rest. He was treated briefly by psychiatry with sertraline; this apparently caused him untoward side effects and he discontinued this preparation. To my knowledge, there has been no neuroleptic exposure. Allergies/Medications Allergies: Coded Allergies: STATINS (Intermediate, LEG WEAKNESS AFTER 11 DAYS 12/03/15) moxifloxacin (From Avelox) (Intermediate, MUSCLE CRAMPS 01/06/16) Home Med List: Escitalopram Oxalate (Lexapro) 20 MG TABLET 1 TAB PO DAILY ANXIETY (Reported) Ezetimibe (Zetia) 10 MG TABLET 1 TAB PO DAILY CHOLESTEROL (Reported) LORazepam (Ativan) 1 MG TAB 1 TAB PO QPM SLEEP (Reported) Metoprolol Succ XL (Toprol XL) 100 MG TAB.ER.24H 1 TAB PO DAILY AFIB ( Reported) Pravastatin Sodium (Pravachol) 20 MG TABLET 1 TAB PO DAILY CHOLESTEROL ( Reported) Zolpidem Tartrate 10 MG TABLET 1 TAB PO QHS SLEEP (Reported) Review of Systems Review of Systems: Positive for depressive symptomatology, significant weight loss, sleep disturbance, intermittent tremulousness and slowness. There has been no head trauma, fever, chills, rash, dysphagia, vomiting, vertigo, gait ataxia, joint inflammation or bleeding disturbance Past History Travel History Traveled to [place] past 21 day No Medical History Neurological: NONE EENT: NONE Cardiovascular: AFIB (PAROXYSMAL), hyperlipidemia, PVC Respiratory: NONE Gastrointestinal: gastritis Hepatic: NONE Renal: NONE Psychiatric: NONE Endocrine: NONE Blood Disorders: NONE Cancer(s): NONE AUTHOR/Reproductive: NONE Surgical History Surgical History: non-contributory Family History Relations & Conditions If Any: MOTHER (Suicide at 26.). FATHER (CAD). Psychosocial History Services at Home: None Smoking Status: Never Smoked Functional Ability ADLs Independent: dressing, eating, toileting, bathing. Ambulation: independent IADLs Independent: shopping, housework, medication admin. Needs Assist: transportation. Unknown: finances, food prep, telephone. Employment History Employment: Retired Profession/Employer: [employer] Exam & Diagnostic Data Vital Signs and I&O Vital Signs Date Time Temp Pulse Resp B/P B/P Pulse O2 O2 Flow FiO2 Mean Ox Delivery Rate 03/09 1054 97.5 74 18 154/88 99 Room Air 03/09 0938 98.4 76 18 164/84 99 Room Air 03/09 0702 98.4 76 18 164/84 99 03/08 2220 98.1 88 19 141/81 96 Room Air 03/08 1759 97.9 82 18 144/79 97 Room Air 03/08 1347 97.6 72 18 132/82 99 Room Air Intake & Output 03/09 1600 03/09 0800 03/09 0000 Intake Total Output Total Balance Patient 150 lb Weight Weight Estimated Measurement Method Middle-aged male in no acute distress. He was awake, alert and cooperative. Speech was fluent. He was oriented to person place and time. He knew the name of the current president. 5 letter reversals were performed adequately. The head was normocephalic and atraumatic. Myerson sign was absent. Pupils were equal. Extraocular movements were full. There was no nystagmus. There was no field cut. Face was symmetric however perhaps mildly hypomimic. Hearing was grossly normal. Tongue was midline; there was no dysarthria. The motor examination showed minimally increased tone at the wrists. There was no tremor. There was no focal or lateralizing weakness. Deep tendon reflexes were symmetric. Plantar responses were flexor. Fine finger movements and rapid alternating movements performed normally. There was normal excursion upon finger tap bilaterally. The patient ambulated independently with a narrow base. He was slightly flexed at the waist. There was no festination. Arm swing was perhaps mildly diminished. There was no retropulsion. Assessment/Plan Assessment: #1 depression with psychotic features. #2 reported, insidious onset of slowness and intermittent tremor, albeit not of the resting or pill-rolling type.. His examination is notable for very mild or subtle extrapyramidal features. One would consider early Lewy body disease. It would be unusual for Parkinson's disease to present in this manner with profound hallucinations very early on with only minimal motor findings. MRI of the brain was found to be essentially normal in February, only showing mild volume loss. Recommendations: Would recommend formal [facility] evaluation and treatment. We would endorse antidepressant therapy. One would wish to avoid the stronger, standard antipsychotic preparations such as Haldol or even Risperdal. Judicious use could be made of low dose Seroquel or Zyprexa if SSRIs were ineffective or intolerable. I would not empirically use agents such as Sinemet at this time.. I would wish to first treat his depression. Apparently the family already has an appointment to see me in early March. I would be happy to reevaluate him in the outpatient setting. Consult Acknowledgment - Thank you for your consult request.
[2018-03-09] MEDS ORDERED: LEXAPRO10 M1 PO (15:07)
--- NOTE | 2018-03-10 07:17 | PN-Observation ---
See Addendum Observation Note Observation Note _ I have personally examined CIRA HERRERA. him disposition is uncertain at this time. Before a determination can be made, he requires continued observation for the following reasons [delirium r/o, awaiting transport to outside [facility] facility]. Assessment/Plan Medical Assessment: Mr. Herrera is a 67-year-old male with a past medical history of paroxysmal atrial fibrillation, hyperlipidemia, who presents with hallucinations and paranoia that started 4 weeks ago, initially at night but now during the day as well. Also complains of urinary frequency and tremors. He is on observation currently for rule out delirium. Has a bed in [facility]. #Altered mental statusgiven new onset, within 4 weeks, and patient's age, I suspect that this is most likely a dementia, perhaps Lewy body dementia versus questionably frontotemporal dementia. CT findings do not show any large ventricles, however urinary incontinence and dementia are present in this patient. Patient does have a history of depression, and his mother did complete suicide at age 26, however he does not have a diagnosis of schizophrenia, and he is very far out of the typical age range for diagnosis of that. care, will have there today have Zyprexa or Seroquel if SSRIs are ineffective or intolerable. Has follow-up there in early March. Vitamin B12 within normal limits. #Chronic medical conditions DVT prophylaxis IV access Regular diet Disposition to [facility], today Full code Problem List: 1. Visual hallucinations 2. Agitation Discharge Plan Stable for Discharge? Yes Anticipated Discharge (Day): today Subjective Follow-up For: Hallucinations, confusion Subjective: No acute events overnight. Patient states that he slept somewhat well. Patient states that he also had a bowel movement. Patient states that 50 mg of Benadryl that he got really helped him sleep. Patient denied complaints, denied fever/ chills/night sweats/chest pain/abdominal pain/urinary symptoms/lower extremity edema. Patient to be transferred to [facility] inpatient [facility] facility today. Review of Systems Constitutional: Reports: see HPI. Objective Last 24 Hrs of Vital Signs/I&O Vital Signs Date Time Temp Pulse Resp B/P B/P Pulse O2 O2 Flow FiO2 Mean Ox Delivery Rate 03/10 0845 97.7 82 16 136/74 03/10 0700 97.7 03/10 0616 97.7 82 16 136/74 96 Room Air Room Air 03/09 2311 97.6 84 18 150/70 99 Room Air 03/09 1931 98.2 82 16 140/70 98 Room Air 03/09 1444 98.1 78 18 148/72 99 Room Air 03/09 1054 97.5 74 18 154/88 99 Room Air 03/09 0938 98.4 76 18 164/84 99 Room Air Physical Exam General Appearance: Alert, Oriented X3, Cooperative, No Acute Distress Skin: No Rashes Cardiovascular: Regular Rate, Normal S1, Normal S2 Lungs: Clear to Auscultation, Normal Air Movement Abdomen: Soft, No Tenderness Neurological: Strength at 5/5 X4 Ext Extremities: No Edema Current Medications: Current Medications Sig/Rachna Start time Last Medication Dose Route Stop Time Status Admin Bisacodyl 5 MG DAILY 03/09 1617 AC 03/10 PO 0845 Diphenhydramine HCl 0 .STK-MED ONE 03/09 2319 DC PO Diphenhydramine HCl 50 MG ONCE ONE 03/09 231 DC 03/09 PO 03/09 2316 2320 Docusate Sodium 100 MG BID 03/09 2100 AC 03/10 PO 0845 Escitalopram Oxalate 20 MG DAILY 03/09 0900 AC 03/10 PO 0845 Heparin Sodium 0 .STK-MED ONE 03/09 2051 DC (Porcine) .ROUTE Heparin Sodium 5,000 UNIT Q8 03/09 0600 AC 03/09 (Porcine) SC 2100 Ibuprofen 0 .STK-MED ONE 03/10 0638 DC PO Ibuprofen 600 MG ONCE ONE 03/10 0630 DC 03/10 PO 03/10 0631 0700 Metoprolol Succinate 100 MG DAILY 03/09 0900 AC 03/10 PO 0845 Omeprazole 40 MG ONCE PRN 03/09 2315 AC 03/10 PO 0420 Senna 187 MG AT BEDTIME 03/09 2100 AC 03/09 PO 2100 Trazodone HCl 0 .STK-MED ONE 03/09 2051 DC PO Trazodone HCl 100 MG AT BEDTIME 03/09 0100 AC 03/09 PO 2100 Last 24 Hrs of Labs/Mics: Laboratory Tests 03/09/18 1510: Lyme Disease Antibody Pending
--- NOTE | 2018-03-10 07:37 | Discharge Summary ---
Visit Information Visit Dates Admission Date: 03/08/18 Discharge Date: 03/10/2018 Hospital Course Course Attending Physician: Sina Smith MD Primary Care Physician: Scar Aguilar MD Hospital Course: Mr Silva is a 67 year old man w/ a PMHx of proximal atrial fibrillation(not on any AC), hyperlipidemia was brought to the ER by his family with a chief concern of hallucinations that started a 4 weeks ago, likely from a neurodegenerative disease. At the time of admission-temperature 97.6, respiration 18, blood pressure 132/82 , pulse rate 72, pulse ox 99% on room air. Pertinent lab findings: WBC 6.3, hemoglobin 12.8, hematocrit 38.3, MCV 75, platelet count 318. Sodium 142, potassium 3.3, chloride 106, bicarbonate 25 BUN 11, creatinine 0.6. Calcium 8.3, TSH 1.39 U tox negative for any opiates, benzodiazepines, amphetamines, cocaine or cannabis. Urinalysis negative for any infection. EKG NSR. CT head- There is no evidence of acute intracranial hemorrhage or territorial infarction. Chest x-ray- There are neither pleural effusions nor pneumothoraces. There are no consolidations. The osseous structures are stable. 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 Although this is a diagnosis of exclusion, this seems more likely; reversible causes need to be ruled out. No evidence of acute psychosis, olivia or delirium. CT scan findings not s/o any masses or lesion, and clearly no focal neurological deficits s/o cva or stroke or cerebellar dysfunction. No s/o infection or liver dysfunction. No neck rigidity. No e/o drug use w/ neg drug screen. No hyperthermia or myoclonus or e/o increased serotonergic activity. Other diff considered are schizophrenia, depression, thyroid disorder, wilsons, partial seizures. Problem list: 1. AMS secondary to dementia, r/o Parkinsons, Lewy body 2. h/o Afib 3. Anemia, likely nutritional; microcytic 4. h/o hyperlipidemia Patient was placed on observation on [facility] floor and continued on home meds, w/ fall/seizure precaution. He was also continued on Lexapro, and started trazdone 100mg qhs. Neurology consult recommended Zyprexa or Seroquel if SSRIs are ineffective or intolerable. Has follow-up there in early March. Labs were normal, Lyme titer sent out. Psychiatry recommended [facility] eval, which he is medically cleared for from a medicine perspective. Allergies: Coded Allergies: STATINS (Intermediate, LEG WEAKNESS AFTER 11 DAYS 12/03/15) moxifloxacin (From Avelox) (Intermediate, MUSCLE CRAMPS 01/06/16) Pertinent Lab Results: SERVICE DATE: 03/08/18 EXAM TYPE: RAD - XRY-CHEST XRAY, TWO VIEWS IMPRESSION: No evidence for acute disease. SERVICE DATE: 03/08/18 EXAM TYPE: CAT - CT HEAD WO IV CONTRAST IMPRESSION: No acute intracranial pathology. Disposition Summary Disposition Principal Diagnosis: Dementia Lewy Bodies Additional Diagnosis: as above Discharge Disposition: SNF Discharge Instructions General Discharge Information Code Status: Full Code Patient's Diet: as tolerated Patient's Activity: as tolerated Follow-Up Instructions/Appts: -please continue care at [facility]. Medications at Discharge Discharge Medications: Stop taking the following medications: Escitalopram Oxalate (Lexapro) 20 MG TABLET ORAL DAILY Ezetimibe (Zetia) 10 MG TABLET ORAL DAILY Zolpidem Tartrate (Zolpidem Tartrate) 10 MG TABLET ORAL TAKE AT BEDTIME LORazepam (Ativan) 1 MG TAB ORAL Every night Continue taking these medications: Metoprolol Succ XL (Toprol XL) 100 MG TAB.ER.24H 1 Tablet ORAL DAILY Comments: Last Taken:05/07/16 Time:0436 Pravastatin Sodium (Pravachol) 20 MG TABLET 1 Tablet ORAL DAILY Start taking the following new medications: Escitalopram Oxalate (Lexapro) 10 MG TABLET 20 Milligram ORAL DAILY Qty = 30 No Refills Copies To: Scar Aguilar MD Attending MD Review Statement Documenting Attending: Sina Smith MD Copies To: Scar Aguilar MD Copies To: Scar Aguilar MD
[2018-03-10 10:13] VITALS: BP 116/75
== END 2018-03-10 11:10 | disposition other institution (70) ==
LOC: ERH 11:58 → ERHI 22:56 → EDBEDREQ 03-09 07:00 → ERHI 03-09 07:41 → ENRESERV 03-09 12:45 → CANRESERV 03-09 12:45 → ERHI 03-10 11:06
PROVIDERS: Student in an Organized Health Care Education/Training Program
DX: F03.90 Unspecified dementia, unspecified severity, without behavioral disturbance, psychotic disturbance, mood disturbance, and anxiety (principal); F32.3 Major depressive disorder, single episode, severe with psychotic features; I48.91 Unspecified atrial fibrillation; E78.5 Hyperlipidemia, unspecified; K29.70 Gastritis, unspecified, without bleeding; D50.9 Iron deficiency anemia, unspecified; R44.1 Visual hallucinations; F22 Delusional disorders; R25.1 Tremor, unspecified; Z79.899 Other long term (current) drug therapy
CPT/HCPCS: 86618; 71046; 80307; 81003; 82436; 84425; 93005; 93010; 96372; G0378; G0463; J1644; J7508